=== PATIENT | male | born 1955 | race Caucasian/White ===

== ENCOUNTER 2018-07-08 17:29 | Observation (INO) | payer OTHER, SELFPAY ==
[2018-07-08 19:25] LABS: Troponin I Less than 0.010 ng/mL (< 0.028)
[2018-07-08] MEDS ORDERED: Ondansetron HCl/PF 4 MG/2 ML Vial ONE (19:29)
[2018-07-08] MEDS ORDERED: traMADol HCl 50 MG TAB ONE (19:42)
[2018-07-08] MEDS ORDERED: Ondansetron HCl/PF 4 MG/2 ML Vial IVP PRN (20:03)
[2018-07-08] MEDS ORDERED: Nitroglycerin 0.4 MG TAB (25 Tab Bottle) SL PRN (20:05)
[2018-07-08] MEDS ORDERED: Dextrose 5% in Water 1,000 ML IV PRN (20:07)
[2018-07-08] MEDS ORDERED: Dextrose 50% Abboject 50 ML SYRINGE SLOW IVP PRN (20:07)
[2018-07-08] MEDS ORDERED: HumaLOG 300 UNITS/3 ML VIAL SC PRN (20:07)
[2018-07-08 20:36] VITALS: BMI 31.6
[2018-07-08] MEDS ORDERED: Atorvastatin Calcium 40 MG TAB PO SCH (21:00)
[2018-07-08] MEDS ORDERED: INSULIN DETEMIR 35 UNIT SQ SCH (21:00)
[2018-07-08 21:57] LABS: Troponin I Less than 0.010 ng/mL (< 0.028)
[2018-07-08] MEDS ORDERED: Ibuprofen 200 MG TAB PO SCH (22:00)
[2018-07-08] MEDS: Insulin Glargine 35 UNITS in Pre-Filled Syringe 1 EACH SC SCH (22:09)
--- NOTE | 2018-07-09 00:38 | HP ---
PRIMARY CARE PHYSICIAN: Tiarra Brower M.D. EVENT PLANNING MANAGER: Heri Herrera M.D. CODE STATUS: FULL CODE. TIME OF EVALUATION: 7:35 p.m. CHIEF COMPLAINT: Chest pain. HISTORY OF PRESENT ILLNESS: This is a 63 years old male patient with past medical history of medical noncompliance, diabetes type 2, GERD, hyperlipidemia, hypertension, came to the hospital after havin g chest pain, pain has been ongoing for the past 2-3 months, patient reported having the chest tightn ess, he has been followed with Dr. Herrera, and was scheduled to have a stress test in the next coming days, but he was feeling not well and called Dr. Herrera's office and he was advised to come here to the hospital. The pain was moderate, 5/10, no clear triggers, no alleviating factors. REVIEW OF SYSTEMS: Constitutional: No fever or chills or generalized weakness. Respiratory: No co ugh or sputum production or shortness of breath. Cardiovascular: Chest pain, no palpitations, no sh ortness of breath. Gastrointestinal: No nausea, no vomiting, diarrhea or abdominal pain. CASING FLUSHER: No dizziness, headache or feeling lightheaded. Genitourinary: No burning on urination. Extremities: No leg swelling. All other systems were reviewed and negative except for the findings mentioned abov e. PAST MEDICAL HISTORY: As mentioned in the HPI. PAST SURGICAL HISTORY: History of hernia repair, rib fractures in last January, stents x3 placed 6 mon ths ago, dislocation of the right knee. PSYCHIATRIC HISTORY: No previous psychiatric history. SOCIAL HISTORY: Smokes on a daily basis, 1 pack of cigarettes per day. Lives at home. No drug use. FAMILY HISTORY: The patient denies any significant family history, mom or dad. KNOWN ALLERGIES: CODEINE SULFATE, PENICILLINS and TYLENOL. REPORTED MEDICATIONS: Levemir 50 units 2 times a day, lisinopril 40 mg 1 tablet once a day, amlodipi ne 10 mg orally once a day. PHYSICAL EXAMINATION: VITAL SIGNS: Blood pressure 135/104 with heart rate of 71, respiratory rate was 18, temperature 98.5 , pain 4/10, oxygen saturation 97 on room air. GENERAL APPEARANCE: Alert, oriented, not in any acute distress. HEENT: Eyes: Normal conjunctiva. Moist oral mucosa. Anicteric. NECK: No JVD. RESPIRATORY: Bilateral air entry. No rales, no wheezing. Symmetric expansion. CARDIOVASCULAR: Normal rate, regular rhythm. No murmurs, no gallop, no edema. ABDOMEN: Soft, normal bowel sounds. MUSCULOSKELETAL: Baseline range of motion and strength. No tenderness. SKIN: Warm and intact. No pallor, no rash. No redness. Peripheral pulses are present. Capillary refill seems to be intact. NEUROLOGIC: Baseline sensory. No evidence of any new focal weakness. Baseline speech. Cranial ner ves seem to be intact. PSYCHIATRIC: The patient is in good mood. No anxiety, oriented, optimal judgment. EKG was discussed with the performing physician from ER, shows a normal sinus rhythm with a rate of 6 6 with no ectopics. Conduction is normal. NC interval 190, QT corrected 389. Chest x-ray was revie wed. The patient had no evidence of acute cardiopulmonary disease. LABORATORY DATA: Reviewed. The patient has glucose of 146. Troponin was negative. White count 10. 7, hemoglobin 14.9, MCV 89. Sodium 140, potassium 4.1, carbon dioxide 24, anion gap 14, BUN 22, crea tinine 0.9, GFR 76, glucose 233. LFTs were normal. ASSESSMENT AND PLAN: The patient will be placed in the hospital with the following medical problems: 1. Chest pain, rule out acute coronary syndrome. The patient has been going on for a few months ___ __ by Dr. Herrera to do a stress test, will do in the morning, we will consult Dr. Herrera for further recommendations. Reconcile home medications. 2. Uncontrolled diabetes, blood sugar elevated, hyperglycemia, we will reconcile home medications, s liding scale for optimal control. 3. Uncontrolled hypertension with systolic blood pressure 146, reconcile home medications, adjust tr eatment as needed. 4. Deep venous thrombosis prophylaxis. 5. Diastolic dysfunction, this is chronic, seen on the previous echo that was reviewed from 06/2014. Reconcile home medications, we will restart diuresis. The patient was . Further adjustment a nd management as per Dr. Herrera.
[2018-07-09] MEDS: traMADol HCl 50 MG TAB PO PRN ×2 (01:24→08:56)
[2018-07-09] MEDS ORDERED: Ibuprofen 200 MG TAB PO SCH (02:45)
[2018-07-09 05:16] LABS: #Basophils 0.1 thou/uL (0.0-0.2); #Eosinphils 0.2 thou/uL (0.0-0.7); #Lymphocytes 3.6 thou/uL (1.20-3.40); #Monocytes 0.9 thou/uL (0.11-0.59); #Neutrophils 5.3 thou/uL (1.40-6.50); %Basophils 0.8 % (0.0-1.0); %Eosinophils 1.8 % (0.0-10.0); %Lymphocytes 35.4 % (21.0-51.0); %Monocytes 9.1 % (0.0-10.0); %Neutrophils 52.9 % (42.0-75.0); Hemoglobin 13.6 g/dL (14.0-18.0); Mean Corpuscular HGB CONC 35.5 g/dL (32.0-36.0); Mean Corpuscular Hemoglobin 32.6 pg (27.0-31.0); Mean Corpuscular Volume 91.9 fL (78.0-98.0); Mean Platelet Volume 7.9 fL (7.4-10.4); Platelet Count 173 thou/uL (130-400); RBC Distribution Width 12.1 % (11.5-14.5); Red Blood Cell (RBC) Count 4.18 mill/uL (4.70-6.10)
[2018-07-09 05:35] LABS: Anion Gap 9 mmol/L (10-20); BUN (Urea Nitrogen) 19 mg/dL (8.4-25.7); Calc. Creatinine Clearance 128 mL/min (70-130); Calcium 8.9 mg/dL (7.8-10.44); Carbon Dioxide 27 mmol/L (23-31); Chloride 108 mmol/L (98-107); Estimated GFR-MDRD Greater than 90; Glucose 119 mg/dL (80-115); Potassium 3.5 mmol/L (3.5-5.1); Sodium 140 mmol/L (136-145)
[2018-07-09 05:41] LABS: Troponin I Less than 0.010 ng/mL (< 0.028)
[2018-07-09 07:34] LABS: Cardiac Risk 4.2 (Less than 4.5)
[2018-07-09] MEDS ORDERED: Aspirin 325 MG TAB PO SCH ×2 (08:00→09:00)
[2018-07-09 08:26] VITALS: TEMP 97.7
[2018-07-09 08:49] VITALS: BP 163/74
[2018-07-09 09:00] LABS: Hemoglobin A1c 8.2 % (4.0-6.0)
[2018-07-09] MEDS ORDERED: Tamsulosin HCl 0.4 MG CAP PO SCH (09:00)
[2018-07-09] MEDS ORDERED: Amlodipine 5 MG TAB PO SCH (09:00)
[2018-07-09] MEDS ORDERED: Lisinopril 20 MG TAB PO SCH (09:00)
[2018-07-09] MEDS ORDERED: Enoxaparin Sodium 40 MG/0.4 ML SYRINGE SC SCH (09:00)
--- NOTE | 2018-07-09 10:21 | PDOC.PN ---
- Subjective Encounter Start Date: 07/09/18 Encounter Start Time: 09:45 Subjective: no chest pain now -: is npo for stress test today - Objective Resuscitation Status: Resuscitation Status FULL:Full Resuscitation MAR Reviewed: Yes Vital Signs & Weight: Vital Signs (12 hours) Temp Pulse Resp BP BP Pulse Ox 07/09/18 08:45 163/74 H 07/09/18 08:25 97.7 F 69 15 141/66 H 95 07/09/18 02:22 97.6 F 80 18 163/74 H 95 07/08/18 23:35 98.0 F 73 18 173/76 H 93 L Weight Weight 214 lb 1 oz I&O: 07/08/18 07/09/18 07/10/18 06:59 06:59 06:59 Intake Total 1040 Balance 1040 Result Diagrams: 07/09/18 05:03 07/09/18 05:03 Additional Labs: Accuchecks 07/08/18 20:20 POC Glucose 146 H Phys Exam - Physical Examination HEENT: PERRLA, moist MMs Neck: no JVD, supple Respiratory: no wheezing, no rales Cardiovascular: RRR, no significant murmur Gastrointestinal: soft, non-tender, positive bowel sounds Musculoskeletal: no edema, pulses present Neurological: non-focal, moves all 4 limbs Psychiatric: normal affect, A&O x 3 Dx/Plan (1) Chest pain Code(s): R07.9 - CHEST PAIN, UNSPECIFIED Status: Acute Qualifiers: Chest pain type: unspecified Qualified Code(s): R07.9 - Chest pain, unspecified (2) DM type 2 (diabetes mellitus, type 2) Status: Chronic Qualifiers: Diabetes mellitus computer terminal operator insulin use: with computer terminal operator use Diabetes mellitus complication status: with unspecified complications Qualified Code(s) : E11.8 - Type 2 diabetes mellitus with unspecified complications; Z79.4 - custodial (current) use of insulin (3) Coronary artery disease Code(s): I25.10 - ATHSCL HEART DISEASE OF [place] CORONARY ARTERY W/O ANG PCTRS Status: Chronic Qualifiers: Coronary Disease-Associated Artery/Lesion type: [place] artery [place] vs. transplanted heart: [place] heart Associated angina: with stable angina Qualified Code(s): I25.118 - Atherosclerotic heart disease of [place] coronary artery with other forms of angina pectoris Comment: prior h/o stent x2 to RCA, OMx?1 (4) Hyperlipidemia Code(s): E78.5 - HYPERLIPIDEMIA, UNSPECIFIED Status: Chronic Qualifiers: Hyperlipidemia type: unspecified Qualified Code(s): E78.5 - Hyperlipidemia , unspecified (5) Hypertension Code(s): I10 - ESSENTIAL (PRIMARY) HYPERTENSION Status: Chronic Qualifiers: Hypertension type: essential hypertension Qualified Code(s): I10 - Essential (primary) hypertension (6) Tobacco abuse Code(s): Z72.0 - TOBACCO USE Status: Chronic - Plan stress test -: had echo done 1 week back in 's office -: likely might have venous insuff with pedal edema off and on -: on asp, lipitor, norvasc, lisinopril and lantus -: cardio consult ?noncompliance with on going tob abuse * . Review of Systems - Medications/Allergies Allergies/Adverse Reactions: Allergies Allergy/AdvReac Type Severity Reaction Status Date / Time acetaminophen Allergy Intermediate Verified 03/30/15 00:10 ampicillin Allergy Intermediate Rash Verified 03/30/15 00:10 codeine Allergy Intermediate Rash Verified 03/30/15 00:10 Penicillins Allergy Intermediate Rash Verified 03/30/15 00:10 bee stings Allergy Uncoded 10/24/15 23:11 Medications: Current Medications Albuterol/Ipratropium (Duoneb) 3 ml NEB QIDPRN PRN PRN Reason: SOB &/or Wheezing Amlodipine Besylate (Norvasc) 5 mg PO DAILY [facility] Last Admin: 07/09/18 08:44 Dose: 5 mg Aspirin (Aspirin) 325 mg PO DAILY [facility] Last Admin: 07/09/18 08:45 Dose: 325 mg Atorvastatin Calcium (Lipitor) 80 mg PO QPM [facility] Last Admin: 07/08/18 22:07 Dose: 80 mg Dextrose/Water (Dextrose 50%) 25 gm SLOW IVP PRN PRN PRN Reason: Hypoglycemia Enoxaparin Sodium (Lovenox) 40 mg SC 0900 [facility] Last Admin: 07/09/18 08:45 Dose: Not Given Glucagon (Glucagon) 1 mg IM PRN PRN PRN Reason: Hypoglycemia Dextrose/Water (D5w) 1,000 mls @ 0 mls/hr IV .Q0M PRN PRN Reason: Hypoglycemia Insulin Glargine 35 units/ (Miscellaneous Medication) 0.35 mls @ 0 mls/hr SC BID [facility] Last Admin: 07/08/18 22:09 Dose: 0.35 mls Insulin Human Lispro (Humalog) 0 units SC .MILD SLIDING SCALE PRN PRN Reason: Mild Correctional Scale Lisinopril (Zestril) 40 mg PO DAILY [facility] Last Admin: 07/09/18 08:45 Dose: 40 mg Nitroglycerin (Nitrostat) 0.4 mg SL Q5MIN PRN PRN Reason: Chest Pain Ondansetron HCl (Zofran) 4 mg IVP Q6H PRN PRN Reason: Nausea/Vomiting Tamsulosin HCl (Flomax) 0.4 mg PO DAILY [facility] Last Admin: 07/09/18 08:46 Dose: 0.4 mg Tramadol HCl (Ultram) 50 mg PO Q6H PRN PRN Reason: Moderate Pain (4-6) Last Admin: 07/09/18 08:56 Dose: 50 mg
--- NOTE | 2018-07-09 12:54 | NM ---
NUCLEAR MEDICINE CARDIAC STRESS WITH EJECTION FRACTION: History: Chest pain. Comparison: Cardiac stress test, 2012. Technique: Stress and rest imaging after intravenous administration of 28.7 and 9 mCi Technetium 99M Sestamibi, respectively. FINDINGS: No scar is seen. Adequate left ventricular uptake of radiotracer. The calculated ejection fraction is 45%. IMPRESSION: 1. No evidence of scar or ischemia. 2. Ejection fraction 45%. POS: [facility]
[2018-07-09] MEDS: Insulin Glargine 35 UNITS in Pre-Filled Syringe 1 EACH SC SCH (13:14)
[2018-07-09] MEDS ORDERED: Regadenoson 0.4 MG/5 ML SYRINGE ONE (13:17)
--- NOTE | 2018-07-09 19:57 | DIS ---
DATE OF ADMISSION: 07/08/2018 DATE OF DISCHARGE: 07/09/2018 DISCHARGE DISPOSITION: To home. PRIMARY DISCHARGE DIAGNOSIS: Chest pain off and on, is noncardiac. SECONDARY DISCHARGE DIAGNOSES: Prior history of coronary artery disease with stenting; diabetes vern itus, type 2; hypertension; dyslipidemia; tobacco abuse. PROCEDURES DONE DURING HOSPITALIZATION: The patient had chest x-ray done which showed no acute cardi opulmonary abnormalities. Nuclear stress test done showed no reversible ischemia or scar. H&H 13 an d 38, platelet count is 173. Three sets of troponin are negative. CK-MB is 1.7. BNP was 28, BUN 22 , creatinine 0.9. Hemoglobin A1c 8.2, total cholesterol 177, triglycerides 165, LDL 102, HDL 42. DISCHARGE MEDICATIONS: Levemir 50 units subcu twice daily, lisinopril 40 mg p.o. daily, Flomax 0.4 m g p.o. daily, Norvasc 5 mg p.o. daily, aspirin 325 mg p.o. daily, Combivent inhaler 2 puffs 4 times d aily p.r.n. ALLERGIES: Allergic to TYLENOL, AMPICILLIN, CODEINE, PENICILLIN, and BEE STING. DISCHARGE PLAN: The patient to follow up with primary care physician in [address] Herrera as adv ised. BRIEF COURSE DURING HOSPITALIZATION: The patient initially got admitted on 07/08/2018 with complaint s of off and on chest pain. He was essentially placed under observation on telemetry in view of stro ng history of coronary artery disease with prior stent. Three sets of troponin were negative. The p ativett has had nuclear stress test done which showed no scar or reversible ischemia. I have discusse d his findings with Dr. Herrera and has been cleared for discharge now. [id number]
--- NOTE | 2018-07-11 20:23 | EKG ---
Test Reason : Blood Pressure : / mmHG Vent. Rate : 066 BPM Atrial Rate : 066 BPM P-R Int : 190 ms QRS Dur : 102 ms QT Int : 372 ms P-R-T Axes : 071 094 067 degrees QTc Int : 389 ms Normal sinus rhythm Rightward axis Borderline ECG Confirmed by JEEVAN SALGADO DO ([id number]), graphics editor CAROL RAINEY ([id number]) on 07/11/2018 8:23:27 PM Referred By: Confirmed By:JEEVAN SALGADO DO
== END 2018-07-09 14:43 | disposition home or self-care (01) ==
LOC: ERS 17:29 → 2SW 20:07
PROVIDERS: ADMIT Internal Medicine; ATTEND Internal Medicine
DX: R07.89 Other chest pain (principal); I25.10 Atherosclerotic heart disease of native coronary artery without angina pectoris; E11.9 Type 2 diabetes mellitus without complications; I10 Essential (primary) hypertension; E78.5 Hyperlipidemia, unspecified; F17.210 Nicotine dependence, cigarettes, uncomplicated; Z95.4 Presence of other heart-valve replacement; Z95.5 Presence of coronary angioplasty implant and graft; Z88.0 Allergy status to penicillin; Z88.2 Allergy status to sulfonamides; Z79.899 Other long term (current) drug therapy
CPT/HCPCS: 36415; 36416; 78452; 80048; 80061; 83036; 84484; 85025; 93005; 93017; 94760; 96374; 99406; A9500; G0378; J1650; J2405; J2785

== ENCOUNTER 2018-07-31 06:35 | Day surgery (SDC) | payer OTHER ==
[2018-07-30 11:15] VITALS: BMI 31.3
[2018-07-31 07:00] LABS: #Basophils 0.1 thou/uL (0.0-0.2); #Eosinphils 0.2 thou/uL (0.0-0.7); #Lymphocytes 3.5 thou/uL (1.20-3.40); %Basophils 1.4 % (0.0-1.0); %Eosinophils 2.4 % (0.0-10.0); %Lymphocytes 35.6 % (21.0-51.0); %Monocytes 9.9 % (0.0-10.0); %Neutrophils 50.7 % (42.0-75.0); Hemoglobin 14.7 g/dL (14.0-18.0); Mean Corpuscular HGB CONC 32.8 g/dL (32.0-36.0); Mean Corpuscular Hemoglobin 30.4 pg (27.0-31.0); Mean Corpuscular Volume 92.9 fL (78.0-98.0); Mean Platelet Volume 7.6 fL (7.4-10.4); Platelet Count 226 thou/uL (130-400); RBC Distribution Width 12.1 % (11.5-14.5); Red Blood Cell (RBC) Count 4.84 mill/uL (4.70-6.10); White Blood Cell (WBC) Count 9.8 thou/uL (4.8-10.8)
[2018-07-31 07:06] LABS: PTT 26.1 SEC (22.9-36.1); Prothrombin Time 12.8 SEC (12.0-14.7)
[2018-07-31 07:20] LABS: ALT (SGPT) 16 U/L (8-55); AST (SGOT) 13 U/L (5-34); Albumin 4.1 g/dL (3.4-4.8); Alkaline Phosphatase 147 U/L (40-150); Anion Gap 12 mmol/L (10-20); BUN (Urea Nitrogen) 24 mg/dL (8.4-25.7); Bilirubin, Total 0.7 mg/dL (0.2-1.2); Calc. Creatinine Clearance 121 mL/min (70-130); Calcium 9.4 mg/dL (7.8-10.44); Carbon Dioxide 23 mmol/L (23-31); Cardiac Risk 4.5 (Less than 4.5); Chloride 108 mmol/L (98-107); Cholesterol 201 mg/dl (< 200 Desired); Estimated GFR-MDRD Greater than 90; Globulin 2.9 g/dL (2.4-3.5); Glucose 98 mg/dL (80-115); HDL Cholesterol 45 mg/dL (>60 Neg Risk); LDL Cholesterol, Calculated 125 mg/dL; Potassium 3.9 mmol/L (3.5-5.1); Sodium 139 mmol/L (136-145); Triglycerides 155 mg/dL (Less than 150)
[2018-07-31] MEDS ORDERED: Lidocaine 1% (PF) 30 ML VIAL ONE (07:48)
[2018-07-31] MEDS ORDERED: Midazolam HCl 2 mg/2 ml Vial ONE (08:28)
[2018-07-31] MEDS ORDERED: Fentanyl 100 MCG/2 ML VIAL ONE (08:28)
[2018-07-31] MEDS ORDERED: Iopamidol 370 76% 100 ML VIAL ONE (10:23)
== END 2018-07-31 12:26 | disposition home or self-care (01) ==
LOC: CCL 06:35
PROVIDERS: ATTEND Internal Medicine Cardiovascular Disease
PROC: B2111ZZ Fluoroscopy of Multiple Coronary Arteries using Low Osmolar Contrast (ICD-10-PCS; principal; 2018-07-31)
PROC: 4A023N7 Measurement of Cardiac Sampling and Pressure, Left Heart, Percutaneous Approach (ICD-10-PCS; principal; 2018-07-31)
DX: I25.110 Atherosclerotic heart disease of native coronary artery with unstable angina pectoris (principal); E78.00 Pure hypercholesterolemia, unspecified; E11.9 Type 2 diabetes mellitus without complications; I11.0 Hypertensive heart disease with heart failure; I50.9 Heart failure, unspecified; F17.210 Nicotine dependence, cigarettes, uncomplicated; K21.9 Gastro-esophageal reflux disease without esophagitis; I25.2 Old myocardial infarction; Z79.4 Long term (current) use of insulin; Z79.82 Long term (current) use of aspirin; Z79.899 Other long term (current) drug therapy; Z88.0 Allergy status to penicillin; Z88.8 Allergy status to other drugs, medicaments and biological substances; Z91.030 Bee allergy status; Z91.038 Other insect allergy status; Z95.5 Presence of coronary angioplasty implant and graft
CPT/HCPCS: 36415; 80053; 80061; 85025; 85610; 85730; 93458; 99152; C1769; J1644; J2001; J2250; J3010

== ENCOUNTER 2018-12-30 12:51 | Outpatient (CLI) | payer OTHER ==
--- NOTE | 2018-12-30 15:47 | MRI ---
MRI OF THE RIGHT SHOULDER: Date: 12/30/18 PROVIDED CLINICAL HISTORY: Right shoulder pain. FINDINGS: There is a high grade partial thickness undersurface tear involving the distal supraspinatus tendon f ibers at the footplate. Superimposed upon this at the region of the distal conjoined tendon is a full thickness, partial width tear, commencing about 12 mm proximal to the footplate and associated with about 6 mm of retraction. The components of the rotator cuff appear otherwise intact. The long head biceps tendon appears intac t and normally located. The glenoid labrum and glenohumeral articular cartilage are suboptimally evaluated in the absence of joint distention, but appear grossly normal. The amount of fluid within the glenohumeral joint is phy siologic. There is greater than physiologic subacromial/subdeltoid bursal fluid. Acromioclavicular joint and osteoarthrosis is noted with mild mass effect upon the subjacent supraspi natus. Rotator cuff muscular volume appears preserved. No focal concerning regional marrow or muscula r signal abnormality is evident. IMPRESSION: 1. Tears of the supraspinatus and distal conjoined tendons as described above. 2. Acromioclavicular joint osteoarthritis. POS: [facility]
== END 2018-12-30 12:52 | disposition home or self-care (01) ==
LOC: BICMRI 12:51
PROVIDERS: ATTEND Orthopaedic Surgery
DX: M75.101 Unspecified rotator cuff tear or rupture of right shoulder, not specified as traumatic (principal); M19.011 Primary osteoarthritis, right shoulder

== ENCOUNTER 2021-03-10 05:39 | Observation (INO) | payer OTHER ==
[2021-03-10 07:28] LABS: Troponin I Less than 0.010 ng/mL (< 0.028)
[2021-03-10 08:31] VITALS: BMI 32.5
[2021-03-10] MEDS ORDERED: HumaLOG 300 UNITS/3 ML VIAL SC PRN ×2 (10:26)
[2021-03-10] MEDS ORDERED: Guaifenesin DM 100-10/5 ML UDCUP PO PRN (10:26)
[2021-03-10] MEDS ORDERED: Ondansetron PF 4 MG/2 ML Vial IVP PRN (10:26)
[2021-03-10] MEDS ORDERED: Bisacodyl 10 MG SUPP PR PRN (10:26)
[2021-03-10] MEDS ORDERED: Senokot S 8.6-50 MG TAB PO PRN (10:26)
[2021-03-10] MEDS ORDERED: Non-Formulary Item 1 EACH (Ipratropium/Albuterol Sulfate [Combivent Respimat] 120 PUFF In INH PRN (10:26)
[2021-03-10] MEDS ORDERED: Dextrose 50% Abboject 50 ML SYRINGE SLOW IVP PRN (10:26)
[2021-03-10] MEDS ORDERED: Calcium Carbonate 500 MG ChewTAB PO PRN (10:26)
[2021-03-10] MEDS ORDERED: Dextrose 5% in Water 1,000 ML IV PRN (10:26)
[2021-03-10] MEDS ORDERED: Sodium Chloride 0.9% 1,000 ML IV SCH (10:30)
[2021-03-10] MEDS ORDERED: Regadenoson 0.4 MG/5 ML SYRINGE ONE (10:59)
[2021-03-10] MEDS ORDERED: Dextrose 50% Abboject 50 ML SYRINGE ONE (13:18)
[2021-03-10 17:44] VITALS: BP 135/65; TEMP 97.8
[2021-03-10] MEDS ORDERED: INSULIN DETEMIR SQ SCH (21:00)
[2021-03-10] MEDS ORDERED: Lantus 1000 UNITS/10 ML VIAL SC SCH (21:00)
[2021-03-11] MEDS ORDERED: Tamsulosin HCl 0.4 MG CAP PO SCH (09:00)
[2021-03-11] MEDS ORDERED: Amlodipine 5 MG TAB PO SCH (09:00)
[2021-03-11] MEDS ORDERED: Enoxaparin Sodium 40 MG/0.4 ML SYRINGE SC SCH (09:00)
[2021-03-11] MEDS ORDERED: Aspirin Chewable 81 MG TAB PO SCH (09:00)
== END 2021-03-10 18:53 | disposition home or self-care (01) ==
LOC: ERS 05:39 → 2SW 06:39
PROVIDERS: ADMIT Student in an Organized Health Care Education/Training Program; ATTEND Student in an Organized Health Care Education/Training Program
DX: R07.89 Other chest pain (principal); I25.10 Atherosclerotic heart disease of native coronary artery without angina pectoris; E11.9 Type 2 diabetes mellitus without complications; K21.9 Gastro-esophageal reflux disease without esophagitis; E78.5 Hyperlipidemia, unspecified; F17.210 Nicotine dependence, cigarettes, uncomplicated; E66.9 Obesity, unspecified; Z68.32 Body mass index [BMI] 32.0-32.9, adult; Z79.4 Long term (current) use of insulin; Z79.82 Long term (current) use of aspirin; Z79.899 Other long term (current) drug therapy; Z88.0 Allergy status to penicillin; Z88.5 Allergy status to narcotic agent; Z88.6 Allergy status to analgesic agent; Z91.030 Bee allergy status
CPT/HCPCS: 36415; 36416; 78452; 93017; 96374; 99285; A9500; G0378; J2405; J2785

== ENCOUNTER 2021-10-23 11:18 | Outpatient (CLI) | payer OTHER | END 2021-10-23 11:19 | disposition home or self-care (01) | LOC: SCSMRI 11:18 | PROVIDERS: ATTEND Family Medicine | DX: M47.22 Other spondylosis with radiculopathy, cervical region (principal); M50.122 Cervical disc disorder at C5-C6 level with radiculopathy; M48.02 Spinal stenosis, cervical region | CPT/HCPCS: 72141 ==

== ENCOUNTER 2023-03-13 20:09 | Observation (INO) | payer MEDICARE, OTHER ==
[2023-03-13 21:53] VITALS: BMI 31.2
[2023-03-13] MEDS ORDERED: HumaLOG 300 UNITS/3 ML VIAL SC PRN ×2 (23:31)
[2023-03-13] MEDS ORDERED: Dextrose 5% in Water 1,000 ML IV PRN (23:31)
[2023-03-13] MEDS ORDERED: Dextrose 50% Abboject 50 ML SYRINGE SLOW IVP PRN (23:31)
[2023-03-14] MEDS ORDERED: Ipratropium/Albuterol Sulfate 4 GM AER IH SCH (06:30)
[2023-03-14] MEDS ORDERED: Aspirin 325 MG TAB PO SCH (08:00)
[2023-03-14] MEDS ORDERED: Insulin Glargine 30 UNITS/0.3 ML VIAL SC SCH (09:00)
[2023-03-14] MEDS ORDERED: Amlodipine 10 MG TAB PO SCH (09:00)
[2023-03-14] MEDS ORDERED: hydrALAZINE 25 MG TAB PO SCH (09:00)
[2023-03-14] MEDS ORDERED: Non-Formulary Item 1 EACH (Sacubitril/Valsartan [Entresto 97 Mg-103 Mg Tablet] 1 EACH Tab PO SCH (09:00)
[2023-03-14] MEDS ORDERED: hydrOXYzine 25 MG TAB PO PRN (09:55)
[2023-03-14] MEDS ORDERED: Escitalopram Oxalate 10 mg Tablet PO SCH (09:56)
[2023-03-14 10:40] LABS: #Basophils 0.1 thou/uL (0.0-0.2); #Eosinphils 0.2 thou/uL (0.0-0.7); #Lymphocytes 3.2 thou/uL (1.20-3.40); #Monocytes 0.9 thou/uL (0.11-0.59); #Neutrophils 5.9 thou/uL (1.40-6.50); %Basophils 0.7 % (0.0-1.0); %Eosinophils 1.5 % (0.0-10.0); %Monocytes 8.8 % (0.0-10.0); Hemoglobin 14.6 g/dL (14.0-18.0); Mean Corpuscular HGB CONC 34.5 g/dL (32.0-36.0); Mean Corpuscular Volume 95.7 fl (78.0-98.0); Mean Platelet Volume 8.5 fL (7.4-10.4); Platelet Count 202 10x3/uL (130-400); RBC Distribution Width 12.8 % (11.5-14.5); Red Blood Cell (RBC) Count 4.43 mill/uL (4.70-6.10); White Blood Cell (WBC) Count 10.2 10x3/uL (4.8-10.8)
[2023-03-14] MEDS ORDERED: Sacubitril 49 MG/Valsartan 51 MG TABLET PO SCH (10:45)
[2023-03-14 11:05] LABS: ALT (SGPT) 15 U/L (8-55); AST (SGOT) 15 U/L (5-34); Albumin 3.7 g/dL (3.4-4.8); Alkaline Phosphatase 120 U/L (40-110); Anion Gap 14 mmol/L (10-20); BUN (Urea Nitrogen) 17 mg/dL (8.4-25.7); Bilirubin, Total 0.6 mg/dL (0.2-1.2); Calc. Creatinine Clearance 112 mL/min (70-130); Calcium 8.7 mg/dL (7.8-10.44); Carbon Dioxide 21 mmol/L (23-31); Chloride 109 mmol/L (98-107); Cholesterol 189 mg/dl (< 200 Desired); Estimated GFR 94; Globulin 2.8 g/dL (2.4-3.5); Glucose 130 mg/dL (80-115); HDL Cholesterol 38 mg/dL (>60 Neg Risk); LDL Cholesterol, Calculated 120 mg/dL; Phosphorus 3.1 mg/dL (2.3-4.7); Potassium 3.7 mmol/L (3.5-5.1); Protein, Total 6.5 g/dL (5.8-8.1); Sodium 140 mmol/L (136-145); Triglycerides 153 mg/dL (Less than 150)
[2023-03-14 11:16] LABS: Creatinine, Urine 134.19 mg/dL (63-166)
[2023-03-14 11:21] LABS: Troponin I 0.018 ng/mL (< 0.028)
[2023-03-14 11:24] LABS: Hemoglobin A1c 6.8 % (4.0-6.0)
[2023-03-14 12:11] VITALS: BP 119/65; TEMP 98.2
[2023-03-15] MEDS ORDERED: Escitalopram Oxalate 10 mg Tablet PO SCH (09:00)
== END 2023-03-14 14:56 | disposition home or self-care (01) ==
LOC: 2SW 20:09
PROVIDERS: ADMIT Family Medicine; ATTEND Family Medicine
DX: F41.9 Anxiety disorder, unspecified (principal); F43.9 Reaction to severe stress, unspecified; R07.89 Other chest pain; I25.110 Atherosclerotic heart disease of native coronary artery with unstable angina pectoris; I11.0 Hypertensive heart disease with heart failure; I50.30 Unspecified diastolic (congestive) heart failure; I25.2 Old myocardial infarction; E11.9 Type 2 diabetes mellitus without complications; J44.9 Chronic obstructive pulmonary disease, unspecified; E78.5 Hyperlipidemia, unspecified; I08.1 Rheumatic disorders of both mitral and tricuspid valves; F17.210 Nicotine dependence, cigarettes, uncomplicated; I44.0 Atrioventricular block, first degree; R80.9 Proteinuria, unspecified; Z79.4 Long term (current) use of insulin; Z79.82 Long term (current) use of aspirin; Z79.899 Other long term (current) drug therapy; Z88.0 Allergy status to penicillin; Z88.5 Allergy status to narcotic agent; Z88.6 Allergy status to analgesic agent; Z91.030 Bee allergy status; Z95.5 Presence of coronary angioplasty implant and graft
CPT/HCPCS: 36415; 36416; 80053; 80061; 82570; 83036; 83735; 84100; 84156; 84443; 84484; 85025; 93306; G0378; J1815; J3535

== ENCOUNTER 2023-06-26 15:55 | Inpatient (IN) | payer OTHER ==
[2023-06-26 17:03] VITALS: BMI 32.5
[2023-06-26] MEDS ORDERED: Ondansetron ODT 4 MG TAB PO PRN (18:03)
[2023-06-26] MEDS ORDERED: Morphine 4 MG/ML VIAL SLOW IVP PRN (18:18)
[2023-06-26] MEDS: Nicotine 21 MG PATCH TD SCH (18:25)
[2023-06-26] MEDS: Acetaminophen 325 MG TAB PO PRN (18:25)
[2023-06-26] MEDS: Ondansetron PF 4 MG/2 ML Vial IVP PRN (18:25)
[2023-06-26] MEDS ORDERED: Lorazepam 0.5 MG TAB PO SCH (18:30)
[2023-06-26] MEDS: Ipratropium/Albuterol 3 ML NEB NEB SCH (18:42)
[2023-06-26] MEDS ORDERED: Morphine 2 MG/ML VIAL SLOW IVP SCH (18:45)
[2023-06-26] MEDS ORDERED: Glucagon 1 MG/ML KIT IM PRN (18:51)
[2023-06-26] MEDS ORDERED: Dextrose 5% in Water 1,000 ML IV PRN (18:51)
[2023-06-26] MEDS ORDERED: Dextrose 50% Abboject 50 ML SYRINGE SLOW IVP PRN (18:51)
[2023-06-26] MEDS ORDERED: HumaLOG 300 UNITS/3 ML VIAL SC PRN (18:51)
[2023-06-26] MEDS ORDERED: methylPREDNISolone Sod Succ 40 MG VIAL IVP SCH (19:00)
[2023-06-26] MEDS ORDERED: Labetalol HCl 100 MG/20 ML VIAL SLOW IVP PRN (19:04)
[2023-06-26] MEDS ORDERED: hydrALAZINE 20 MG/ML VIAL SLOW IVP PRN (19:04)
[2023-06-26] MEDS ORDERED: Ibuprofen 200 MG TAB PO PRN (19:16)
[2023-06-26] MEDS: Atorvastatin Calcium 40 MG TAB PO SCH (20:39)
[2023-06-26] MEDS: Famotidine 20 MG TAB PO SCH (20:39)
[2023-06-26] MEDS: Insulin Glargine 30 UNITS/0.3 ML VIAL SC SCH (20:40)
[2023-06-26] MEDS: Morphine 2 MG/ML VIAL SLOW IVP PRN (21:29)
[2023-06-26] MEDS: Azithromycin 500 MG in Sodium Chloride 0.9% 250 ML 250 ML IVPB SCH (21:30)
[2023-06-26] MEDS ORDERED: GUAIFENESIN SF SOLN 200 MG/10 ML UDCUP PO PRN (22:23)
[2023-06-26] MEDS ORDERED: Benzonatate 100 MG CAP PO PRN (22:23)
[2023-06-27 00:15] LABS: Bacteria/HPF None Seen HPF (None Seen); Bilirubin Negative (Negative); Blood, Urine Trace (Negative); CAUTI Indications for Culture Fever or rigors; Clarity Clear (Clear); Glucose, Urine (Dipstick) Normal (Negative); Ketone, Urine Negative (Negative); Leukocyte Negative Leu/uL (Negative); Nitrite Negative (Negative); Protein, Urine (Dipstick) 200 mg/dL (Neg-Trace); RBC/HPF 0-3 HPF (0-3); Specific Gravity, Urine 1.045 (1.002-1.036); Squamous Epithelial None Seen HPF (0-3); Urobilinogen Normal mg/dL (Less than 2); WBC/HPF 0-3 HPF (0-3); pH, Urine 5.5 (5.0-9.0)
[2023-06-27 00:16] LABS: Urine Culture Reflex No No
[2023-06-27] MEDS: methylPREDNISolone Sod Succ 40 MG VIAL IVP SCH ×5 (01:04→23:40)
[2023-06-27] MEDS: hydrOXYzine 25 MG TAB PO PRN ×2 (05:32→21:05)
[2023-06-27] MEDS: Morphine 2 MG/ML VIAL SLOW IVP PRN ×2 (05:32→21:07)
[2023-06-27 05:48] LABS: #Monocytes 0.1 thou/uL (0.11-0.59); %Basophils 0.2 % (0.0-1.0); %Lymphocytes 10.1 % (21.0-51.0); %Monocytes 0.8 % (0.0-10.0); %Neutrophils 88.5 % (42.0-75.0); Hematocrit 37.9 % (42.0-52.0); Hemoglobin 13.2 g/dL (14.0-18.0); Mean Corpuscular HGB CONC 34.8 g/dL (32.0-36.0); Mean Corpuscular Hemoglobin 31.5 pg (27.0-31.0); Mean Corpuscular Volume 90.5 fl (78.0-98.0); Mean Platelet Volume 10.1 fL (7.4-10.4); Platelet Count 181 10x3/uL (130-400); Red Blood Cell (RBC) Count 4.19 mill/uL (4.70-6.10); White Blood Cell (WBC) Count 13.5 10x3/uL (4.8-10.8)
[2023-06-27 05:55] LABS: Hemoglobin A1c 6.3 % (4.0-6.0)
[2023-06-27 06:30] LABS: Anion Gap 13 mmol/L (10-20); BUN (Urea Nitrogen) 22 mg/dL (8.4-25.7); Calc. Creatinine Clearance 110 mL/min (70-130); Calcium 8.6 mg/dL (7.8-10.44); Carbon Dioxide 20 mmol/L (23-31); Cardiac Risk 4.5 (Less than 4.5); Chloride 105 mmol/L (98-107); Cholesterol 187 mg/dl (< 200 Desired); Estimated GFR 93; Glucose 297 mg/dL (80-115); HDL Cholesterol 42 mg/dL (>60 Neg Risk); LDL Cholesterol, Calculated 132 mg/dL; Potassium 4.2 mmol/L (3.5-5.1); Sodium 134 mmol/L (136-145); Triglycerides 67 mg/dL (Less than 150)
[2023-06-27] MEDS: Aspirin 81 mg Enteric Coated Tablet PO SCH (08:12)
[2023-06-27] MEDS: Famotidine 20 MG TAB PO SCH ×2 (08:12→20:43)
[2023-06-27] MEDS: Insulin Glargine 30 UNITS/0.3 ML VIAL SC SCH ×2 (08:12→21:06)
[2023-06-27] MEDS: Escitalopram Oxalate 10 mg Tablet PO SCH (08:12)
[2023-06-27] MEDS: Ipratropium/Albuterol 3 ML NEB NEB SCH ×5 (08:22→18:23)
[2023-06-27] MEDS: HumaLOG 300 UNITS/3 ML VIAL SC PRN (12:22)
[2023-06-27] MEDS: Nicotine 21 MG PATCH TD SCH (17:35)
[2023-06-27] MEDS: Atorvastatin Calcium 40 MG TAB PO SCH (20:43)
[2023-06-27] MEDS: Azithromycin 500 MG in Sodium Chloride 0.9% 250 ML 250 ML IVPB SCH (20:44)
[2023-06-27] MEDS: Acetaminophen 325 MG TAB PO PRN (21:04)
[2023-06-28] MEDS: Morphine 2 MG/ML VIAL SLOW IVP PRN ×3 (05:56→21:32)
[2023-06-28] MEDS: HumaLOG 300 UNITS/3 ML VIAL SC PRN ×3 (06:00→17:22)
[2023-06-28] MEDS: methylPREDNISolone Sod Succ 40 MG VIAL IVP SCH ×4 (06:05→17:08)
[2023-06-28] MEDS: Ipratropium/Albuterol 3 ML NEB NEB SCH ×4 (07:10→09:53)
[2023-06-28] MEDS: Aspirin 81 mg Enteric Coated Tablet PO SCH (09:24)
[2023-06-28] MEDS: Famotidine 20 MG TAB PO SCH ×2 (09:24→21:08)
[2023-06-28] MEDS: Escitalopram Oxalate 10 mg Tablet PO SCH (09:24)
[2023-06-28] MEDS: Insulin Glargine 30 UNITS/0.3 ML VIAL SC SCH ×2 (09:26→21:17)
[2023-06-28] MEDS: HYDROcodone/Acetaminophen 5/325 mg Tablet PO PRN (09:31)
[2023-06-28 11:41] LABS: Syphilis Antibody Nonreactive (Nonreactive); Syphilis Antibody Index 0.02 S/CO (<1.00 Non-Reactive)
[2023-06-28] MEDS ORDERED: hydrALAZINE 25 MG TAB PO SCH (15:00)
[2023-06-28 17:03] LABS: ANA Symphony (Qualitative) Negative (Negative); ANA Symphony (Quantitative) 0.3 Ratio (< 0.7 Negative)
[2023-06-28] MEDS: Sodium Chloride 0.9% 1,000 ML IV SCH (17:03)
[2023-06-28] MEDS: hydrALAZINE 25 MG TAB PO SCH ×2 (17:13→21:14)
[2023-06-28] MEDS: Nicotine 21 MG PATCH TD SCH (17:21)
[2023-06-28] MEDS: Azithromycin 500 MG in Sodium Chloride 0.9% 250 ML 250 ML IVPB SCH (21:06)
[2023-06-28] MEDS: Atorvastatin Calcium 40 MG TAB PO SCH (21:08)
[2023-06-28] MEDS: hydrOXYzine 25 MG TAB PO PRN (21:09)
[2023-06-28] MEDS: NIFEdipine XL 30 MG TAB PO SCH (21:15)
[2023-06-28] MEDS: Metoprolol Tartrate 25 MG TAB PO SCH (21:15)
[2023-06-28] MEDS: Ondansetron PF 4 MG/2 ML Vial IVP PRN (21:42)
[2023-06-29] MEDS: methylPREDNISolone Sod Succ 40 MG VIAL IVP SCH ×3 (00:25→11:50)
[2023-06-29] MEDS: Morphine 2 MG/ML VIAL SLOW IVP PRN ×2 (04:22→19:54)
[2023-06-29] MEDS: Acetaminophen 325 MG TAB PO PRN (04:28)
[2023-06-29] MEDS: Sodium Chloride 0.9% 1,000 ML IV SCH ×2 (04:30→16:41)
[2023-06-29] MEDS: HumaLOG 300 UNITS/3 ML VIAL SC PRN ×3 (05:36→16:40)
[2023-06-29] MEDS: NIFEdipine XL 30 MG TAB PO SCH ×2 (08:17→19:41)
[2023-06-29] MEDS: Sacubitril 49 MG/Valsartan 51 MG TABLET PO SCH (08:17)
[2023-06-29] MEDS: Metoprolol Tartrate 25 MG TAB PO SCH ×2 (08:18→19:42)
[2023-06-29] MEDS: Aspirin 325 MG TAB PO SCH (08:18)
[2023-06-29] MEDS: hydrALAZINE 25 MG TAB PO SCH ×3 (08:18→19:42)
[2023-06-29] MEDS: Famotidine 20 MG TAB PO SCH ×2 (08:19→19:43)
[2023-06-29] MEDS: Escitalopram Oxalate 10 mg Tablet PO SCH (08:19)
[2023-06-29] MEDS: Insulin Glargine 30 UNITS/0.3 ML VIAL SC SCH ×2 (08:23→21:50)
[2023-06-29] MEDS ORDERED: Amlodipine 5 MG TAB PO SCH (09:00)
[2023-06-29] MEDS: HYDROcodone/Acetaminophen 5/325 mg Tablet PO PRN (10:36)
[2023-06-29 14:14] LABS: #Monocytes 0.7 thou/uL (0.11-0.59); #Neutrophils 17.5 thou/uL (1.40-6.50); %Basophils 0.1 % (0.0-1.0); %Lymphocytes 7.2 % (21.0-51.0); %Monocytes 3.7 % (0.0-10.0); %Neutrophils 88.6 % (42.0-75.0); Hematocrit 36.9 % (42.0-52.0); Hemoglobin 13.1 g/dL (14.0-18.0); Mean Corpuscular HGB CONC 35.5 g/dL (32.0-36.0); Mean Corpuscular Hemoglobin 31.8 pg (27.0-31.0); Mean Corpuscular Volume 89.6 fl (78.0-98.0); Mean Platelet Volume 10.6 fL (7.4-10.4); Platelet Count 246 10x3/uL (130-400); RBC Distribution Width 13.2 % (11.5-14.5); Red Blood Cell (RBC) Count 4.12 mill/uL (4.70-6.10); White Blood Cell (WBC) Count 19.7 10x3/uL (4.8-10.8)
[2023-06-29 14:24] LABS: Hemoglobin A1c 6.4 % (4.0-6.0)
[2023-06-29 14:35] LABS: Anion Gap 12 mmol/L (10-20); BUN (Urea Nitrogen) 37 mg/dL (8.4-25.7); Calc. Creatinine Clearance 126 mL/min (70-130); Calcium 8.3 mg/dL (7.8-10.44); Carbon Dioxide 21 mmol/L (23-31); Chloride 108 mmol/L (98-107); Estimated GFR 96; Glucose 197 mg/dL (80-115); Sodium 137 mmol/L (136-145)
[2023-06-29] MEDS: Nicotine 21 MG PATCH TD SCH (17:27)
[2023-06-29] MEDS: Gabapentin 100 MG CAP PO SCH (19:40)
[2023-06-29] MEDS: Atorvastatin Calcium 40 MG TAB PO SCH (19:43)
[2023-06-29] MEDS: Azithromycin 500 MG in Sodium Chloride 0.9% 250 ML 250 ML IVPB SCH (19:44)
[2023-06-29] MEDS: hydrOXYzine 25 MG TAB PO PRN (19:54)
[2023-06-29] MEDS: Ondansetron PF 4 MG/2 ML Vial IVP PRN (20:14)
[2023-06-30] MEDS: Sodium Chloride 0.9% 1,000 ML IV SCH ×2 (00:23→09:13)
[2023-06-30] MEDS: methylPREDNISolone Sod Succ 40 MG VIAL IVP SCH ×2 (00:26→11:07)
[2023-06-30] MEDS ORDERED: NIFEdipine XL 30 MG TAB PO SCH (08:25)
[2023-06-30] MEDS ORDERED: Metoprolol Tartrate 25 MG TAB PO SCH (09:00)
[2023-06-30] MEDS ORDERED: NIFEdipine XL 60 MG TAB PO SCH (09:00)
[2023-06-30] MEDS: Famotidine 20 MG TAB PO SCH (09:15)
[2023-06-30] MEDS: Escitalopram Oxalate 10 mg Tablet PO SCH (09:15)
[2023-06-30] MEDS: hydrALAZINE 25 MG TAB PO SCH ×2 (09:15→15:20)
[2023-06-30] MEDS: Gabapentin 100 MG CAP PO SCH ×2 (09:15→15:20)
[2023-06-30] MEDS: Sacubitril 49 MG/Valsartan 51 MG TABLET PO SCH (09:15)
[2023-06-30] MEDS: Aspirin 325 MG TAB PO SCH (09:15)
[2023-06-30] MEDS: Insulin Glargine 30 UNITS/0.3 ML VIAL SC SCH (09:16)
[2023-06-30] MEDS: Morphine 2 MG/ML VIAL SLOW IVP PRN (11:06)
[2023-06-30 13:40] LABS: #Monocytes 1.4 thou/uL (0.11-0.59); #Neutrophils 14.4 thou/uL (1.40-6.50); %Basophils 0.2 % (0.0-1.0); %Lymphocytes 10.5 % (21.0-51.0); %Monocytes 7.8 % (0.0-10.0); Hematocrit 38.9 % (42.0-52.0); Hemoglobin 13.3 g/dL (14.0-18.0); Mean Corpuscular HGB CONC 34.2 g/dL (32.0-36.0); Mean Corpuscular Volume 90.7 fl (78.0-98.0); Mean Platelet Volume 10.4 fL (7.4-10.4); Platelet Count 260 10x3/uL (130-400); RBC Distribution Width 13.6 % (11.5-14.5); Red Blood Cell (RBC) Count 4.29 mill/uL (4.70-6.10); White Blood Cell (WBC) Count 17.7 10x3/uL (4.8-10.8)
[2023-06-30 14:15] LABS: Anion Gap 10 mmol/L (10-20); BUN (Urea Nitrogen) 43 mg/dL (8.4-25.7); Calc. Creatinine Clearance 123 mL/min (70-130); Calcium 8.4 mg/dL (7.8-10.44); Carbon Dioxide 24 mmol/L (23-31); Chloride 111 mmol/L (98-107); Estimated GFR 96; Glucose 75 mg/dL (80-115); Potassium 3.6 mmol/L (3.5-5.1); Sodium 141 mmol/L (136-145)
[2023-06-30 16:08] VITALS: BP 156/66; TEMP 97.8
[2023-07-02 09:18] LABS: HSV 1 - DNA Negative (Negative); HSV 2 - DNA Negative (Negative)
== END 2023-06-30 16:56 | disposition home or self-care (01) | DRG 125 ==
LOC: T4-B 16:48 → OBSVTOIN 06-28 15:40
PROVIDERS: ADMIT Internal Medicine; ATTEND Hospitalist
DX: H35.61 Retinal hemorrhage, right eye (principal); H34.8112 Central retinal vein occlusion, right eye, stable; E87.20 Acidosis, unspecified; I13.0 Hypertensive heart and chronic kidney disease with heart failure and stage 1 through stage 4 chronic kidney disease, or unspecified chronic kidney disease; J44.1 Chronic obstructive pulmonary disease with (acute) exacerbation; E11.319 Type 2 diabetes mellitus with unspecified diabetic retinopathy without macular edema; N18.9 Chronic kidney disease, unspecified; I50.9 Heart failure, unspecified; I25.10 Atherosclerotic heart disease of native coronary artery without angina pectoris; E11.22 Type 2 diabetes mellitus with diabetic chronic kidney disease; E78.5 Hyperlipidemia, unspecified; F17.210 Nicotine dependence, cigarettes, uncomplicated; D72.829 Elevated white blood cell count, unspecified; E11.40 Type 2 diabetes mellitus with diabetic neuropathy, unspecified; B34.9 Viral infection, unspecified; D35.2 Benign neoplasm of pituitary gland; Z88.1 Allergy status to other antibiotic agents; Z88.0 Allergy status to penicillin; Z95.5 Presence of coronary angioplasty implant and graft; Z88.5 Allergy status to narcotic agent; Z88.8 Allergy status to other drugs, medicaments and biological substances; Z79.4 Long term (current) use of insulin; Z79.82 Long term (current) use of aspirin; I25.2 Old myocardial infarction; Z98.890 Other specified postprocedural states; Z90.49 Acquired absence of other specified parts of digestive tract
CPT/HCPCS: 36415; 36416; 70543; 70551; 80048; 80061; 81001; 82164; 82728; 83036; 84145; 84146; 84439; 84443; 85025; 85379; 85652; 86038; 86225; 86780; 87497; 87529; 87798; 93005; 93010; 96365; 96366; 96372; 96375; 96376; G0378; J0456; J1650; J1815; J2272; J2405; J2920; J7050

== ENCOUNTER 2023-07-10 12:18 | Outpatient (CLI) | payer MEDICARE ==
[~2023-07-10 12:18] MED LIST: Magnevist 469MG/ML 20 ML VIAL ONE
== END 2023-07-10 12:19 | disposition home or self-care (01) ==
LOC: MRI 12:18
PROVIDERS: ATTEND Neurological Surgery
DX: D35.2 Benign neoplasm of pituitary gland (principal); H53.8 Other visual disturbances; G93.9 Disorder of brain, unspecified
CPT/HCPCS: 70553